=== PATIENT | female | born 1965 | race American Indian/Alaskan Native ===

== ENCOUNTER 2019-12-20 23:08 | Emergency (ER) | payer SELFPAY ==
[2019-12-21 01:08] LABS: Alanine Aminotransferase 22 units/L (7-56); Albumin 4.9 g/dL (3.9-5); BUN/Creatinine Ratio 24; Blood Urea Nitrogen 17 mg/dL (7-17); Calcium 10.2 mg/dL (8.4-10.2); Hemolysis Index 3
[2019-12-21 01:11] LABS: Basophils % (Auto) 0.2 % (0.0-1.8); Eosinophils % (Auto) 0.1 % (0.0-4.3); Hemoglobin 13.8 gm/dl (10.1-14.3); Lymphocytes # (Auto) 0.9 K/mm3 (1.2-5.4); Lymphocytes % (Auto) 9.3 % (13.4-35.0); Mean Corpuscular HGB Conc 34 % (30-34); Mean Corpuscular Volume 86 fl (79-97); Monocytes # (Auto) 0.3 K/mm3 (0.0-0.8); Monocytes % (Auto) 3.2 % (0.0-7.3); Platelet Count 387 K/mm3 (140-440); Red Blood Count 4.66 M/mm3 (3.65-5.03)
[2019-12-21] MEDS ORDERED: METOCLOPRAMIDE 10 MG/2 ML INJ IV ONE (01:56)
[2019-12-21] MEDS ORDERED: POTASSIUM CHLORIDE ER 20 MEQ TAB PO ONE (01:56)
[2019-12-21] MEDS ORDERED: ACETAMINOPHEN 325 MG/10.15 ML ORAL LIQD UNIT DOSE PO ONE (01:56)
[2019-12-21] MEDS ORDERED: FAMOTIDINE 20 MG/2 ML INJ IV ONE (01:56)
--- NOTE | 2019-12-21 01:57 | Emergency Department Report ---
ED General Adult HPI - General Chief complaint: Abdominal Pain Stated complaint: N/V Time Seen by Provider: 12/21/19 01:44 Source: patient, RN notes reviewed, old records reviewed Mode of arrival: Ambulatory Limitations: No Limitations - History of Present Illness Initial comments: This is a 54-year-old female. She does have a local primary care doctor; Dr. Pineda. She denies a history of abdominal surgical history. She does have a history of hypertension and possible GERD/reflux. She presents to the ER with a complaint of nausea, vomiting, diarrhea and abdominal pain. It is currently Saturday morning. Symptoms started Saturday evening. She reports that she made some chicken and couscous. Nobody else ate this food. Shortly after eating the chicken and couscous, she developed a few episodes of nonbloody, diarrhea, which is now resolved. She has continued episodes of unopposed nausea and vomiting, and bilateral side/abdominal flank pain. No urinary symptoms. Positive fever. Positive malaise. Positive weakness. No chest pain, no endorsement of shortness of breath. Nobody else is sick at home. No recent travel. No antibiotic use. -: Gradual, days(s) Location: abdomen Quality: other Consistency: constant Improves with: rest Worsens with: eating, movement - Related Data Home Medications Medication Instructions Recorded Confirmed Last Taken atenoloL [Atenolol] 25 mg PO DAILY 08/09/14 08/17/14 08/17/14 Omeprazole [PriLOSEC] 20 mg PO BID 08/12/14 08/17/14 08/16/14 Previous Rx's Medication Instructions Recorded Last Taken Type Famotidine [Pepcid] 20 mg PO BID #10 tablet 12/21/19 Unknown Rx Jennifer Root [Jennifer] 250 mg PO QID PRN #30 capsule 12/21/19 Unknown Rx Loperamide [Imodium] 2 mg PO Q2HR PRN #30 capsule 12/21/19 Unknown Rx Metoclopramide [Reglan] 10 mg PO QID PRN #30 tablet 12/21/19 Unknown Rx Allergies Allergy/AdvReac Type Severity Reaction Status Date / Time aspirin Allergy ABD PAIN Verified 12/03/15 22:36 ibuprofen Allergy ABD PAIN Verified 12/03/15 22:36 ED Review of Systems ROS: Stated complaint: N/V Other details as noted in HPI Constitutional: fever, malaise, weakness Eyes: denies: eye discharge ENT: denies: congestion Respiratory: denies: wheezing Cardiovascular: denies: syncope Gastrointestinal: abdominal pain, nausea, vomiting, diarrhea Genitourinary: denies: dysuria Musculoskeletal: as per HPI Skin: as per HPI Neurological: weakness Psychiatric: as per HPI Hematological/Lymphatic: as per HPI ED Past Medical Hx - Past Medical History Previous Medical History?: Yes Hx Hypertension: Yes (3 MOS atenolol) Hx Heart Attack/AMI: No Hx Congestive Heart Failure: No Hx Diabetes: Yes Hx GERD: Yes (REFLUX) Hx Liver Disease: No Hx Renal Disease: No Hx Sickle Cell Disease: No Hx Seizures: No Hx Asthma: Yes Hx COPD: No Hx HIV: No Additional medical history: Gout - Surgical History Past Surgical History?: No - Social History Smoking Status: Never Smoker Substance Use Type: None - Medications Home Medications: Home Medications Medication Instructions Recorded Confirmed Last Taken Type atenoloL [Atenolol] 25 mg PO DAILY 08/09/14 08/17/14 08/17/14 History Omeprazole [PriLOSEC] 20 mg PO BID 08/12/14 08/17/14 08/16/14 History Famotidine [Pepcid] 20 mg PO BID #10 tablet 12/21/19 Unknown Rx Jennifer Root [Jennifer] 250 mg PO QID PRN #30 capsule 12/21/19 Unknown Rx Loperamide [Imodium] 2 mg PO Q2HR PRN #30 capsule 12/21/19 Unknown Rx Metoclopramide [Reglan] 10 mg PO QID PRN #30 tablet 12/21/19 Unknown Rx ED Physical Exam - General Limitations: No Limitations General appearance: alert, anxious, in distress, obese - Head Head exam: Present: atraumatic, normocephalic - Eye Eye exam: Present: normal appearance, EOMI. Absent: nystagmus - ENT ENT exam: Present: normal exam, normal orophraynx, mucous membranes moist, normal external ear exam - Neck Neck exam: Present: normal inspection, full ROM. Absent: tenderness, meningismus - Respiratory Respiratory exam: Present: normal lung sounds bilaterally. Absent: respiratory distress - Cardiovascular Cardiovascular Exam: Present: regular rate, normal rhythm, normal heart sounds. Absent: bradycardia, tachycardia, irregular rhythm, systolic murmur, diastolic murmur, rubs, gallop - GI/Abdominal GI/Abdominal exam: Present: soft. Absent: distended, tenderness, guarding, rebound, rigid, pulsatile mass - Extremities Exam Extremities exam: Present: normal inspection, full ROM, other (2+ pulses noted in the bilateral upper and lower extremities. There is no palpable cord. negative Homans sign. Muscular compartments are soft. The pelvis is stable.). Absent: pedal edema, calf tenderness - Back Exam Back exam: Present: normal inspection, full ROM. Absent: tenderness, CVA tenderness (R), CVA tenderness (L), paraspinal tenderness, vertebral tenderness - Neurological Exam Neurological exam: Present: alert, other (There is no facial droop. The tongue is midline. Extraocular movements are intact bilaterally. There is 5 out of 5 strength in bilateral upper and lower extremities. Sensation is intact to light touch bilateral upper and lower extremities. There is a normal gait.). Absent: motor sensory deficit - Psychiatric Psychiatric exam: Present: anxious - Skin Skin exam: Present: warm, dry, intact, normal color. Absent: rash ED Course Vital Signs 12/20/19 12/21/19 12/21/19 23:44 02:31 02:37 Temperature 100.0 F H 98.8 F 98.2 F Pulse Rate 89 86 87 Respiratory 18 15 18 Rate Blood Pressure 133/75 147/82 Blood Pressure 147/82 [Left] O2 Sat by Pulse 100 98 98 Oximetry 12/21/19 12/21/19 02:43 04:02 Temperature 98.7 F Pulse Rate 72 Respiratory 18 17 Rate Blood Pressure Blood Pressure 123/66 [Left] O2 Sat by Pulse 98 99 Oximetry - Reevaluation(s) Reevaluation #1: 12/21/19 02:49 Differential diagnosis, including but not limited to: Enteritis, colitis, diverticulitis, obstruction, appendicitis, food poisoning, electrolyte derangement, urinary tract infection Assessment and plan: 54-year-old female with resolved diarrhea, unopposed nausea and vomiting, low-grade temperature, evidence of dehydration, and abdominal pain. Suspect foodborne illness, however, given resolution of diarrhea and continued nausea vomiting, we will obtain CT scan abdomen pelvis to exclude surgical pathology. We will replete her hypokalemia, treat her symptoms, and reassess after her initial data points have resulted. Reevaluation #2: 12/21/19 04:19 Reassessed. The patient feels improved. Tolerating p.o. No active vomiting. Belly soft on repeat exam. CT scan does not demonstrate any surgical disease. Urinalysis is reviewed and appreciated; the patient does not endorse any urinary symptoms. Expectant management discussed with the patient, and she verbalizes understanding. She indicates that she feels ready for discharge. Return precautions are reviewed. ED Medical Decision Making - Lab Data Result diagrams: 12/21/19 00:29 12/21/19 00:29 Vital Signs 12/20/19 12/21/19 12/21/19 23:44 02:31 02:37 Temperature 100.0 F H 98.8 F 98.2 F Pulse Rate 89 86 87 Respiratory 18 15 18 Rate Blood Pressure 133/75 147/82 Blood Pressure 147/82 [Left] O2 Sat by Pulse 100 98 98 Oximetry 12/21/19 02:43 Temperature Pulse Rate Respiratory 18 Rate Blood Pressure Blood Pressure [Left] O2 Sat by Pulse 98 Oximetry Lab Results 12/21/19 12/21/19 Range/Units 00:29 00:29 WBC 9.5 (4.5-11.0) K/mm3 RBC 4.66 (3.65-5.03) M/mm3 Hgb 13.8 (10.1-14.3) gm/dl Hct 40.0 (30.3-42.9) % MCV 86 (79-97) fl MCH 30 (28-32) pg MCHC 34 (30-34) % RDW 13.0 L (13.2-15.2) % Plt Count 387 (140-440) K/mm3 Lymph % (Auto) 9.3 L (13.4-35.0) % Wirt % (Auto) 3.2 (0.0-7.3) % Eos % (Auto) 0.1 (0.0-4.3) % Baso % (Auto) 0.2 (0.0-1.8) % Lymph # 0.9 L (1.2-5.4) K/mm3 Wirt # 0.3 (0.0-0.8) K/mm3 Eos # 0.0 (0.0-0.4) K/mm3 Baso # 0.0 (0.0-0.1) K/mm3 Seg Neutrophils % 87.2 H (40.0-70.0) % Seg Neutrophils # 8.3 H (1.8-7.7) K/mm3 Sodium 139 (137-145) mmol/L Potassium 2.8 L* (3.6-5.0) mmol/L Chloride 92.7 L (98-107) mmol/L Carbon Dioxide 28 (22-30) mmol/L Anion Gap 21 mmol/L BUN 17 (7-17) mg/dL Creatinine 0.7 (0.7-1.2) mg/dL Estimated GFR > 60 ml/min BUN/Creatinine Ratio 24 % Glucose 156 H (65-100) mg/dL Calcium 10.2 (8.4-10.2) mg/dL Total Bilirubin 0.60 (0.1-1.2) mg/dL AST 24 (5-40) units/L ALT 22 (7-56) units/L Alkaline Phosphatase 85 (35-129) units/L Total Protein 8.4 H (6.3-8.2) g/dL Albumin 4.9 (3.9-5) g/dL Albumin/Globulin Ratio 1.4 % Lipase 21 (13-60) units/L - EKG Data -: EKG Interpreted by Nh EKG shows normal: sinus rhythm Rate: normal - EKG Data 12/21/19 02:50 The EKG today shows a sinus rhythm, 82 bpm, normal axis, QTC 427 ms, left ventricular hypertrophy, motion artifact, the EKG is not consistent with a STEMI. He does have nonspecific abnormalities. - Radiology Data Radiology results: pending, report reviewed, image reviewed Print Report Referring Physician: DONALD TALLEY Patient Name: TERE LAKE Date of : 1965 Sex: Female Report Date: 2019-12-21 Report Status: Finalized Findings [facility] [address] [place] [address] Cat Scan Report Signed Patient: TERE LAKE MR#: [id number] : 1965 Acct:[id number] Age/Sex: 54 / F ADM Date: 12/20/19 Loc: ED Attending Dr: Ordering Physician: DONALD TALLEY MD Date of Service: 12/21/19 Procedure(s): CT abdomen pelvis w con Accession Number(s): [id number] cc: DONALD TALLEY MD CT abdomen pelvis w con INDICATION / CLINICAL INFORMATION: MAIN: Nausea, Vomiting, Diarrhea, Generalized Abdominal pain . 100 ML OMNIPAQUE 300. TECHNIQUE: Axial CT imaging of abdomen and pelvis was obtained with IV contrast. Coronal and sagittal reformatted imaging obtained and reviewed. All CT scans at this location are performed using CT dose reduction for ALARA by means of automated exposure control. COMPARISON: None. FINDINGS: CT abdomen with contrast demonstrates normal appearance of the liver, spleen, pancreas, kidneys, and adrenal glands. Gallbladder is grossly unremarkable. No biliary dilatation. No intrarenal calculi or hydronephrosis identified. CT pelvis with contrast demonstrates normal appearance of the appendix. No pelvic mass, free fluid, or focal inflammatory change identified. There are multiple fluid-filled nondilated loops of small bowel throughout the abdomen or pelvis. The colon is unremarkable. The appearance is most suggestive of enteritis. This will need to be correlated with clinical presentation and symptoms. Visualized lung bases are clear. No significant osseous abnormality. IMPRESSION: 1. Multiple loops of nondilated fluid-filled small bowel are present. The most likely etiology is enteritis. Please correlate with clinical symptoms and presentation. 2. No other significant abnormality. Signer Name: Yara Connolly MD Signed: 12/21/2019 4:08 AM Workstation Name: [id number] Transcribed By: Dictated By: Yara Connolly MD Electronically Authenticated By: Yara Connolly MD Signed Date/Time: 12/21/198 DD/ 4 Critical care attestation.: If time is entered above; I have spent that time in minutes in the direct care of this critically ill patient, excluding procedure time. ED Disposition Clinical Impression: Nausea vomiting and diarrhea, Hypokalemia, Acute abdominal pain Disposition: - TO HOME OR SELFCARE Is pt being admited?: No Does the pt Need Aspirin: No Condition: Stable Instructions: Abdominal Pain (ED) Additional Instructions: Advance diet as tolerated. Drink plenty of fluids, water, Gatorade, Pedialyte, or apple juice. If consuming apple juice or Gatorade, mix it [id number] with clear water. Advance diet as tolerated, bread, rice, apples, toast. Wash hands very thoroughly with soap and water after using the restroom and before handling food. When preparing food in the future, please make certain that it is fully cooked. If patient takes metformin medication, do not take this medication for the next 2 days. Patient may take the pain medication, nausea medications as needed and directed. Follow-up with your primary care doctor within the next 3 to 5 days. Return to the emergency room right away with new, worsened or different symptoms, or symptoms not present on the initial emergency room evaluation. Referrals: LIBBY JACKSON MD [Staff Physician] - 3-5 Days Forms: Work/School Release Form(ED)
[2019-12-21] MEDS: POTASSIUM CHLORIDE 10 MEQ 10 MEQ/100 ML BAG IV SCH ×3 (02:18→04:49)
[2019-12-21 02:58] LABS: Bilirubin,Urine NEG (Negative); Blood,Urine SM (Negative); Color,Urine Yellow (Yellow); Protein,Urine <15 mg/dL mg/dL (Negative); Urobilinogen,Urine < 2.0 mg/dL (<2.0)
[2019-12-21 04:08] VITALS: BP 123/66
--- NOTE | 2019-12-21 04:13 | Cat Scan Report ---
CT abdomen pelvis w con INDICATION / CLINICAL INFORMATION: MAIN: Nausea, Vomiting, Diarrhea, Generalized Abdominal pain . 100 ML OMNIPAQUE 300. TECHNIQUE: Axial CT imaging of abdomen and pelvis was obtained with IV contrast. Coronal and sagittal reformatte d imaging obtained and reviewed. All CT scans at this location are performed using CT dose reduction for ALARA by means of automated exposure control. COMPARISON: None. FINDINGS: CT abdomen with contrast demonstrates normal appearance of the liver, spleen, pancreas, kidneys, and adrenal glands. Gallbladder is grossly unremarkable. No biliary dilatation. No intrarenal calculi or hydronephrosis identified. CT pelvis with contrast demonstrates normal appearance of the appendix. No pelvic mass, free fluid, o r focal inflammatory change identified. There are multiple fluid-filled nondilated loops of small bowel throughout the abdomen or pelvis. The colon is unremarkable. The appearance is most suggestive of enteritis. This will need to be correlat ed with clinical presentation and symptoms. Visualized lung bases are clear. No significant osseous abnormality. IMPRESSION: 1. Multiple loops of nondilated fluid-filled small bowel are present. The most likely etiology is ent eritis. Please correlate with clinical symptoms and presentation. 2. No other significant abnormality. Signer Name: Yara Connolly MD Signed: 12/21/2019 4:08 AM Workstation Name: [id number]
== END 2019-12-21 04:50 | disposition home or self-care (01) ==
LOC: ED 23:08
DX: E87.6 Hypokalemia (principal); R10.9 Unspecified abdominal pain; R11.2 Nausea with vomiting, unspecified; R19.7 Diarrhea, unspecified; I10 Essential (primary) hypertension; E11.9 Type 2 diabetes mellitus without complications; K21.9 Gastro-esophageal reflux disease without esophagitis; J45.909 Unspecified asthma, uncomplicated
CPT/HCPCS: 36415; 74177; 80053; 81001; 82550; 83690; 83735; 85025; 87086; 93005; 93010; 96374; 96375; 99285; J2765; J3480; Q9967